=== PATIENT | female | born 1960 | race Caucasian/White ===

== ENCOUNTER 2019-06-28 00:35 | Inpatient (IN) | payer SELFPAY ==
[~2019-06-28] VITALS: Ht 165.1 cm; Wt 68.0 kg
[2019-06-28] VITALS (8 sets, daily range): BP systolic 93–117; BP diastolic 51–63
[2019-06-28] MEDS ORDERED: MORPHINE SULFATE INJ 4 MG/ML INJ 1ML IV STA (00:58)
[2019-06-28] MEDS ORDERED: ONDANSETRON HCL INJ 2MG/ML 2ML 2 MG/ML VIAL IV STA (00:58)
[2019-06-28] MEDS ORDERED: SODIUM CHLORIDE 0.9% 1000ML 1,000 ML IV ONE (01:00)
[2019-06-28] MEDS ORDERED: ONDANSETRON HCL INJ 2MG/ML 2ML 2 MG/ML VIAL ONE ×2 (01:11→17:41)
[2019-06-28] MEDS ORDERED: MORPHINE SULFATE INJ 4 MG/ML INJ 1ML ONE (01:12)
[2019-06-28] MEDS ORDERED: DIATRIZOATE MEGL/DIATRIZOA SOD 30 ML BTL PO ONE (01:30)
[2019-06-28 01:36] LABS: BASOPHILS % 0.2 % (0.0-1.0); EOSINOPHILS # (AUTO) 0.1 (0.0-0.4); EOSINOPHILS % 0.9 % (0.0-6.0); HEMATOCRIT 44.3 % (34.2-44.1); HEMOGLOBIN 14.9 g/dL (12.0-16.0); LYMPHOCYTES # (AUTO) 1.8 (1.0-3.2); LYMPHOCYTES % 11.2 % (18.0-39.1); MEAN CORPUSCULAR HGB CONC 33.6 g/dL (31-35); MEAN CORPUSCULAR VOLUME 86.4 fL (81-99); MONOCYTES # (AUTO) 1.3 (0.2-0.8); MONOCYTES % 7.9 % (4.4-11.3); NEUTROPHILS % 79.6 % (38.7-80.0); PLATELET COUNT 249 x10e3/uL (140-360); RED BLOOD COUNT 5.13 x10e6/uL (3.6-5.1); RED CELL DISTRIBUTION WIDTH 13.8 % (11.7-14.4)
[2019-06-28 01:37] LABS: BILIRUBIN,URINE NEGATIVE (NEGATIVE); CLARITY,URINE CLEAR (CLEAR); COLOR,URINE YELLOW (YELLOW); KETONES,URINE NEGATIVE (NEGATIVE); LEUKOCYTE ESTERASE ,URINE NEGATIVE (NEGATIVE); NITRITE,URINE NEGATIVE (NEGATIVE); PROTEIN,URINE DIPSTICK NEGATIVE (NEGATIVE); URINE UROBILINOGEN 0.2 mg/dL (0.2 - 1)
[2019-06-28 01:52] LABS: ALANINE AMINOTRANSFERASE 20 IU/L (0-55); ALBUMIN 4.6 g/dL (3.5-5.0); ALBUMIN/GLOBULIN RATIO 1.3 (0.8-2.0); ALKALINE PHOSPHATASE 75 IU/L (40-150); ANION GAP 17.1 mmol/L (8-16); BLOOD UREA NITROGEN 9 mg/dL (7-26); BUN/CREATININE RATIO 11 (6-25); CALCIUM 10.3 mg/dL (8.4-10.2); CARBON DIOXIDE 22 mmol/L (22-29); CHLORIDE 102 mmol/L (98-107); CREATININE, SERUM 0.82 mg/dL (0.57-1.11); EST GLOMERULAR FILTRATION RATE > 60 ML/MIN (60-); GLUCOSE 161 mg/dL (74-118); POTASSIUM 4.1 mmol/L (3.5-5.1); SODIUM 137 mmol/L (136-145)
[2019-06-28 01:57] LABS: EPITHELIAL CELLS,URINE RARE /LPF
[2019-06-28 02:05] LABS: AMYLASE 61 U/L (25-125); LIPASE 12 U/L (8-78)
[2019-06-28] MEDS ORDERED: SODIUM CHLORIDE 0.9% 50ML 50 ML ONE (02:28)
[2019-06-28] MEDS ORDERED: IOPAMIDOL 370 MG/ML 200 ML INFUS..BTL INJ ONE (02:29)
[2019-06-28] MEDS ORDERED: KETOROLAC TROMETHAMINE 30 MG/ML VIAL IV STA (02:50)
[2019-06-28] MEDS ORDERED: HYDROMORPHONE 1MG/1ML INJ IV STA (03:02)
--- NOTE | 2019-06-28 03:06 | Diagnostic Imaging Report ---
EXAMINATION: CT of the abdomen and pelvis with contrast. TECHNIQUE: Spiral CT images of the abdomen and pelvis were performed from the lung bases to the lesser trochanters after the intravenous administration of 100 cc Isovue-370. Coronal and sagittal reformatted images were obtained. COMPARISON: None. CLINICAL HISTORY:Abdominal pain, nausea, vomiting, fever, diarrhea DISCUSSION: ABDOMEN/PELVIS: LOWER THORAX:Atelectatic versus fibrotic changes of the lower lobes. HEPATOBILIARY: Simple cyst in segment IVb adjacent to the gallbladder (average internal attenuation less than 20 Hounsfield units). Subcentimeter lesions, hypoattenuating, within the right and left lobes, too small to further characterize but likely represent small cysts. No biliary dilatation. Gallbladder is unremarkable. SPLEEN: No splenomegaly. PANCREAS: No focal masses or ductal dilatation. ADRENALS: No adrenal nodules. KIDNEYS/URETERS: No hydronephrosis, stones, or solid mass lesions. PELVIC ORGANS/BLADDER: Urinary bladder is incompletely distended but otherwise unremarkable. Uterus is anteflexed and appears normal. No adnexal mass. PERITONEUM/RETROPERITONEUM: Small volume free pelvic fluid, average attenuation 10-15 Hounsfield units. No pneumoperitoneum. LYMPH NODES: No pelvic sidewall, retroperitoneal, or mesenteric lymphadenopathy. VESSELS: Abdominal aorta, major branch vessels, and iliac arterial systems are patent. Portal vein, splenic vein, and central superior mesenteric vein are patent. GI TRACT: The large bowel is notable for diverticula scattered along the sigmoid colon without definite wall thickening or adjacent inflammatory change. The appendix is dilated, measuring 1.3 cm at the tip, with a suspected appendicolith proximally seen on series 2 image 72. There is no small bowel dilatation to suggest obstruction. BONES AND SOFT TISSUE: No bony destructive lesions. No soft tissue abnormalities. IMPRESSION: Acute appendicitis with reactive free pelvic fluid. No keely perforation or drainable fluid collection. Findings discussed by telephone with Dr. Garcia of the emergency center at 3:00 AM 06/28/2019. Signed by: Dr. Arturo Leo M.D. on 06/28/2019 3:03 AM
[2019-06-28] MEDS ORDERED: SODIUM CHLORIDE 0.9% 1000ML 1,000 ML IV SCH (03:13)
[2019-06-28] MEDS ORDERED: PIPER-TAZ 3.375 GM 50 ML IV SCH ×2 (03:15→10:00)
[2019-06-28] MEDS ORDERED: ONDANSETRON HCL INJ 2MG/ML 2ML 2 MG/ML VIAL IV PRN ×2 (03:15→09:00)
[2019-06-28] MEDS ORDERED: HYDROMORPHONE 1MG/1ML INJ IV PRN (03:15)
--- OUTSIDE RECORDS SUMMARY | 2019-06-28 03:23 | XMS REPORT ---
Author Author [facility] Address Unknown Phone Unavailable Care Team Providers Care Displayer Merchandise Name Role Phone Gage GRANADO Unavailable Unavailable Problems This patient has no known problems. Allergies, Adverse Reactions, Alerts This patient has no known allergies or adverse reactions. Medications This patient has no known medications. Results Test Description Test Time Test Comments Text Results Atomic Results Result Comments CT ABDOMEN/PELVIS W 2019-06-28 02:52:00 [place] [id number] Patient Name: TAM ROA MR #: [id number] : 1960 Age/Sex: 59/F Req #: [id number] Adm Physician: Ordered by: SONIA GRANADO MD Report #: [id number] Location: ER Room/Bed: Procedure: CT/CT ABDOMEN/PELVIS W Exam Date: Exam Time: REPORT STATUS: Signed EXAMINATION: CT of the abdomen and pelvis with contrast. TE CHNIQUE: Spiral CT images of the abdomen and pelvis were performed from the lung bases to the lesser trochanters after the intravenous administration of 100 cc Isovue-370. Coronal and sagittal reformatted images were obtained. COMPARISON: None. CLINICAL HISTORY:Abdominal pain, nausea, vomiting, fever, diarrhea DISCUSSION: ABDOMEN/PELVIS: LOWER THORAX:Atelectatic versus fibrotic changes of the lower lobes. HEPATOBILIARY: Simple cyst in segment IVb adjacent to the gallbladder (average internal attenuation less than 20 Hounsfield units). Subcentimeter lesions, hypoattenuating, within the right and left lobes, too small to further characterize but likely represent small cysts. No biliary dilatation. Gallbladder is unremarkable. SPLEEN: No splenomegaly. PANCREAS: No focal masses or ductal dilatation. ADRENALS: No adrenal nodules. KIDNEYS/URETERS: No hydronephrosis, stones, or solid mass lesions. PELVIC ORGANS/BLADDER: Urinary bladder is incompletely distended but otherwise unremarkable. Uterus is anteflexed and appears normal. No adnexal mass. PERITONEUM/RETROPERITONEUM: Small volume free pelvic fluid, average attenuation 10-15 Hounsfield units. No pneumoperitoneum. LYMPH NODES: No pelvic sidewall, retroperitoneal, or mesenteric lymphadenopathy. VESSELS: Abdominal aorta, major branch vessels, and iliac arterial systems are patent. Portal vein, splenic vein, and central superior mesenteric vein are patent. GI TRACT: The large bowel is notable for diverticula scattered along the sigmoid colon without definite wall thickening or adjacent inflammatory change. The appendix is dilated, measuring 1.3 cm at the tip, with a suspected appendicolith proximally seen on series 2 image 72. There is no small bowel dilatation to suggest obstruction. BONES AND SOFT TISSUE: No bony destructive lesions. No soft tissue abnormalities. IMPRESSION: Acute appendicitis with reactive free pelvic fluid. No keely perforation or drainable fluid collection. Findings discussed by telephone with Dr. Granado of the emergency center at 3:00 AM 06/28/2019. Signed by: Dr. Jacquie Burris M.D. on 06/28/2019 3:03 AM Dictated By: JACQUIE BURRIS MD 2 Transcribed By: TRAM on 06/28/19302 COPY TO: SONIA GRANADO MD
[2019-06-28] MEDS ORDERED: BUPIVACAINE HCL 0.5% INJ 30 ML VIAL INJ ONE (08:02)
[2019-06-28] MEDS ORDERED: MORPHINE SULFATE INJ 4 MG/ML INJ 1ML IV PRN (09:00)
[2019-06-28] MEDS ORDERED: ACETAMINOPHEN 325 MG TAB PO PRN (09:00)
--- NOTE | 2019-06-28 09:11 | Pre Op History & Physical ---
CHIEF COMPLAINT: Abdominal pain. HISTORY OF PRESENT ILLNESS: The patient is a 59-year-old female, who presents with complaints of abdominal pain, says the pain started on Friday, which was 2 days ago. She has associated nausea, vomiting, as well as low-grade fever. Pain has persistently unchanged. She came to the emergency room for evaluation. CT scan of the abdomen and pelvis revealed findings suggestive of acute appendicitis. PAST MEDICAL HISTORY: Otherwise unremarkable. She has no chronic medical problems, only previous surgery, tubal ligation, as well as abdominoplasty. ALLERGIES: SHE HAS NO KNOWN ALLERGIES. MEDICATIONS: There were no current medications. FAMILY HISTORY: Noncontributory. SOCIAL HISTORY: The patient does not smoke cigarettes, does not drink alcohol. REVIEW OF SYSTEMS: As stated above, otherwise was negative. PHYSICAL EXAMINATION: GENERAL: The patient is awake and alert, in no distress. VITAL SIGNS: Normal. She is afebrile. HEENT: Unremarkable. Sclerae are nonicteric. NECK: Supple with no masses. LUNGS: Equal breath sounds are clear bilaterally. CARDIAC: Regular rate and rhythm with no murmur. ABDOMEN: Tender in the right lower quadrant with signs of peritonitis localized to right lower quadrant. There is no mass. There was no organomegaly. EXTREMITIES: Have no edema. Pulses were palpable. NEUROLOGIC: Intact. ASSESSMENT: A 59-year-old female with acute appendicitis. She is now admitted to the hospital. She was started on IV antibiotics. PLAN: Laparoscopic appendectomy. Procedure was explained to the patient including risks, benefits, and alternatives. She understands. She has had the opportunity to ask questions. She is aware of the possible need for open surgery. MD HERMANN Jones/PHILL /[id number]
[2019-06-28] MEDS: DEXTROSE 5%/0.45% SOD CHL 1,000 ML IV SCH ×2 (10:22→20:44)
[2019-06-28] MEDS: PIPER-TAZ 3.375 GM 50 ML IV SCH ×2 (10:29→17:29)
--- NOTE | 2019-06-28 12:52 | Operative Report ---
DATE OF PROCEDURE: 06/28/2019 SURGEON: Arturo Zee MD PREOPERATIVE DIAGNOSIS: Acute appendicitis. POSTOPERATIVE DIAGNOSIS: Acute appendicitis. PROCEDURES: Diagnostic laparoscopy, laparoscopic appendectomy. ADMISSIONS ADVISOR: None. ANESTHESIA: General endotracheal. INDICATIONS AND FINDINGS: The patient is a 59-year-old female, who presented with a 2-day history of abdominal pain, localized to right lower quadrant. Surgery based on acutely inflamed appendix, considerable fibrinous exudate, and some purulent fluid around the appendix. There was some inflammatory reaction on the small bowel. Liver and stomach appeared normal. TECHNIQUE: After adequate general endotracheal anesthesia with the patient in supine position, the abdomen was prepped and draped in sterile fashion with ChloraPrep solution. Skin just below the umbilicus was infiltrated with 0.5% Marcaine. Incision was made, abdominal wall was elevated and Veress needle was introduced. Pneumoperitoneum was then created. A 10 mm trocar and cannula were then passed through this wound. Laparoscopic camera was introduced. Initial laparoscopy revealed inflammatory process in right lower quadrant with some fibrinous exudate seen and inflammatory changes on the bowel. A 12 mm trocar and cannula were placed suprapubically and a 5 mm trocar and cannula were placed in the right upper quadrant. These were placed under direct vision. Cecum was elevated, acutely inflamed appendix identified. A window was created between the base of the appendix and mesoappendix. The base of the appendix was divided close to the cecum with Endo-ALYSHA stapler. The mesoappendix was also divided with the Endo-ALYSHA stapler freeing the appendix completely. Hemostasis at each staple line was seen to be adequate. The appendix was then placed into an Endopouch and brought out through the suprapubic cannula. Care was taken to not touch the abdominal wall. The area of the appendectomy was inspected for hemostasis, which was seen to be adequate. It was irrigated with saline, all fluid aspirated and inspected for hemostasis, which was seen to be adequate. Instruments and cannulas were then removed. Pneumoperitoneum was evacuated. Wounds were then closed. Fascia in the umbilical and suprapubic wounds closed with 0 Vicryl. Skin to all wounds closed with august. Sterile dressings applied to each wound. The patient tolerated the procedure well. Estimated blood loss was 10 mL. There were no complications. All counts were correct. The patient was taken to the recovery room in satisfactory condition. MD HERMANN Jones/PHILL /[id number]
[2019-06-28] MEDS: HYDROCODONE/APAP 5MG-325MG TAB PO PRN (17:38)
[2019-06-28] MEDS ORDERED: LIDOCAINE HCL 2% LOCAL INJ 5 ML SDV VIAL INJ ONE (17:41)
[2019-06-28] MEDS ORDERED: PROPOFOL IV EMULSION 10 MG/ML 20 ML VIAL ONE (17:41)
[2019-06-28] MEDS ORDERED: DEXAMETHASONE SOD PHOS INJ 4 MG/ML VIAL ONE (17:41)
[2019-06-28] MEDS ORDERED: SEVOFLURANE INHAL SOLN 250 ML PEN BTL ONE (17:41)
[2019-06-28] MEDS ORDERED: ROCURONIUM BROMIDE 10 MG/ML 5ML VIAL ONE (17:41)
[2019-06-28] MEDS ORDERED: MIDAZOLAM HCL 2 MG/2 ML VIAL ONE (18:19)
[2019-06-28] MEDS ORDERED: FENTANYL CITRATE/PF 100MCG/2 ML INJ ONE (18:19)
[2019-06-29] MEDS: PIPER-TAZ 3.375 GM 50 ML IV SCH ×3 (00:25→12:34)
[2019-06-29 00:47] VITALS: BP 105/55
[2019-06-29 05:52] LABS: BASOPHILS % 0.2 % (0.0-1.0); EOSINOPHILS # (AUTO) 0.1 (0.0-0.4); EOSINOPHILS % 0.3 % (0.0-6.0); HEMATOCRIT 34.7 % (34.2-44.1); HEMOGLOBIN 11.4 g/dL (12.0-16.0); LYMPHOCYTES # (AUTO) 1.5 (1.0-3.2); LYMPHOCYTES % 8.5 % (18.0-39.1); MEAN CORPUSCULAR HGB CONC 32.9 g/dL (31-35); MEAN CORPUSCULAR VOLUME 88.3 fL (81-99); MONOCYTES # (AUTO) 0.4 (0.2-0.8); MONOCYTES % 2.5 % (4.4-11.3); NEUTROPHILS # (AUTO) 15.3 (2.1-6.9); NEUTROPHILS % 87.8 % (38.7-80.0); PLATELET COUNT 168 x10e3/uL (140-360); RED BLOOD COUNT 3.93 x10e6/uL (3.6-5.1); RED CELL DISTRIBUTION WIDTH 14.4 % (11.7-14.4)
[2019-06-29] MEDS: HYDROCODONE/APAP 5MG-325MG TAB PO PRN (06:03)
[2019-06-29 06:18] LABS: ALANINE AMINOTRANSFERASE 12 IU/L (0-55); ALBUMIN 3.1 g/dL (3.5-5.0); ALKALINE PHOSPHATASE 44 IU/L (40-150); ANION GAP 9.8 mmol/L (8-16); BLOOD UREA NITROGEN 9 mg/dL (7-26); BUN/CREATININE RATIO 11 (6-25); CALCIUM 9.1 mg/dL (8.4-10.2); CARBON DIOXIDE 25 mmol/L (22-29); CHLORIDE 103 mmol/L (98-107); CREATININE, SERUM 0.82 mg/dL (0.57-1.11); EST GLOMERULAR FILTRATION RATE > 60 ML/MIN (60-); GLUCOSE 129 mg/dL (74-118); POTASSIUM 3.8 mmol/L (3.5-5.1); SODIUM 134 mmol/L (136-145)
[2019-06-29 08:10] VITALS: BP 102/52
[2019-06-29] MEDS: DEXTROSE 5%/0.45% SOD CHL 1,000 ML IV SCH (08:11)
[2019-06-29] MEDS ORDERED: ONDANSETRON HCL 4 MG ORAL DISINTEGRATING TAB PO PRN (09:00)
[2019-06-29 09:30] VITALS: BP 102/52
[2019-06-29 11:43] VITALS: BP 103/65
[2019-06-29] MEDS ORDERED: ULTRACET TABLE1 EACH PO (13:38)
[2019-06-29] MEDS ORDERED: AUGMENTIN 875-1 EACH PO (13:39)
== END 2019-06-29 14:15 | disposition home or self-care (01) | DRG 343 ==
LOC: ER 00:35 → ERHOLD 03:20 → MED/SURG3 04:00 → MED/SURG 09:59
PROVIDERS: ADMIT Surgery; ATTEND Surgery
PROC: 0DTJ4ZZ Resection of Appendix, Percutaneous Endoscopic Approach (ICD-10-PCS; principal; 2019-06-28 08:15)
DX: K35.30 Acute appendicitis with localized peritonitis, without perforation or gangrene (principal); Z82.49 Family history of ischemic heart disease and other diseases of the circulatory system
CPT/HCPCS: 36415; 74177; 80053; 81001; 82150; 83690; 85025; 88304; 99284; J1100; J1885; J2001; J2250; J2270; J2405; J2543; J3010; J7030; Q0162; Q9967

== ENCOUNTER 2024-08-06 20:55 | Emergency (ER) | payer SELFPAY ==
[~2024-08-06] VITALS: Ht 170.2 cm; Wt 68.0 kg
[~2024-08-06 20:55] MED LIST: AUGMENTIN 875-1 EACH PO; ULTRACET TABLE1 EACH PO
[2024-08-06 22:05] VITALS: TEMP 98.7
[2024-08-06] MEDS ORDERED: ONDANSETRON HCL 4 MG ORAL DISINTEGRATING TAB ONE (22:09)
[2024-08-06] MEDS: ONDANSETRON HCL 4 MG ORAL DISINTEGRATING TAB PO ONE (22:15)
[2024-08-06 23:14] LABS: BILIRUBIN,URINE SMALL (NEGATIVE); CLARITY,URINE SL CLOUDY (CLEAR); COLOR,URINE ORANGE (YELLOW); GLUCOSE, URINE 1+ (NEGATIVE); KETONES,URINE 1+ (NEGATIVE); LEUKOCYTE ESTERASE ,URINE LARGE (NEGATIVE); NITRITE,URINE POSITIVE (NEGATIVE); PH,URINE 5.5 (5 - 7); PROTEIN,URINE DIPSTICK >=300 (NEGATIVE); URINE UROBILINOGEN 1 mg/dL (0.2 - 1)
[2024-08-06 23:15] LABS: BACTERIA,URINE MANY /HPF; EPITHELIAL CELLS,URINE MODERATE /LPF; RBC,URINE >50 /HPF (0-5); WBC,URINE (MAN) >50 /HPF (0-5)
[2024-08-07] MEDS: KETOROLAC TROMETHAMINE 30 MG/ML VIAL IV STA (01:15)
[2024-08-07 01:57] LABS: BASOPHILS % 0.3 % (0.0-1.0); EOSINOPHILS % 0.1 % (0.0-6.0); HEMATOCRIT 43.6 % (34.2-44.1); HEMOGLOBIN 13.9 g/dL (12.0-16.0); LYMPHOCYTES % 13.7 % (18.0-39.1); MEAN CORPUSCULAR HEMOGLOBIN 30.1 pg (28-32); MEAN CORPUSCULAR HGB CONC 31.9 g/dL (31-35); MEAN CORPUSCULAR VOLUME 94.4 fL (81-99); MONOCYTES # (AUTO) 0.7 (0.2-0.8); MONOCYTES % 4.6 % (4.4-11.3); PLATELET COUNT 204 x10e3/uL (140-360); RED BLOOD COUNT 4.62 x10e6/uL (3.6-5.1); RED CELL DISTRIBUTION WIDTH 13.5 % (11.7-14.4); WHITE BLOOD COUNT 14.85 x10e3/uL (4.8-10.8)
[2024-08-07 02:08] LABS: INR 0.99; PROTHROMBIN TIME 13.6 seconds (11.9-14.5)
[2024-08-07 02:09] LABS: PARTIAL THROMBOPLASTIN TIME 32.8 seconds (23.8-35.5)
[2024-08-07 02:10] LABS: ANION GAP 16.9 mmol/L (8-16); CALCIUM 9.6 mg/dL (8.4-10.2); CREATININE, SERUM 0.95 mg/dL (0.57-1.11); POTASSIUM 3.9 mmol/L (3.5-5.1)
[2024-08-07] MEDS ORDERED: IOPAMIDOL 370 MG/ML 100 ML INFUS..BTL INJ ONE (02:50)
[2024-08-07 03:17] VITALS: PULSE 78; RESP 16
[2024-08-07] MEDS ORDERED: PYRIDIUM200 MG PO (04:07)
[2024-08-07] MEDS ORDERED: ONDANSETRON ODT4 MG SL (04:07)
[2024-08-07] MEDS ORDERED: CEFDINIR300 MG PO (04:07)
[2024-08-07 04:22] VITALS: BP 126/65; O2SAT 98
== END 2024-08-07 04:15 | disposition home or self-care (01) ==
LOC: ER 08-07 00:27
DX: N30.91 Cystitis, unspecified with hematuria (principal); R10.30 Lower abdominal pain, unspecified; D25.9 Leiomyoma of uterus, unspecified
CPT/HCPCS: 36415; 74178; 80048; 81001; 85025; 85610; 85730; 87086; 87186; 99284; J0696; J1885; Q0162 ×2; Q9967

== ENCOUNTER 2024-10-14 09:27 | Emergency (ER) | payer SELFPAY ==
[~2024-10-14] VITALS: Ht 170.2 cm; Wt 68.0 kg
[~2024-10-14 09:27] MED LIST changes: +CEFDINIR300 MG PO; +ONDANSETRON ODT4 MG SL; +PYRIDIUM200 MG PO
[2024-10-14 09:34] VITALS: TEMP 98.4
[2024-10-14 10:17] LABS: BASOPHILS % 0.3 % (0.0-1.0); EOSINOPHILS % 0.3 % (0.0-6.0); HEMATOCRIT 46.5 % (34.2-44.1); HEMOGLOBIN 14.8 g/dL (12.0-16.0); LYMPHOCYTES # (AUTO) 1.2 (1.0-3.2); LYMPHOCYTES % 19.3 % (18.0-39.1); MEAN CORPUSCULAR HEMOGLOBIN 30.6 pg (28-32); MEAN CORPUSCULAR HGB CONC 31.8 g/dL (31-35); MEAN CORPUSCULAR VOLUME 96.3 fL (81-99); MONOCYTES # (AUTO) 0.4 (0.2-0.8); MONOCYTES % 5.9 % (4.4-11.3); NEUTROPHILS # (AUTO) 4.7 (2.1-6.9); PLATELET COUNT 221 x10e3/uL (140-360); RED BLOOD COUNT 4.83 x10e6/uL (3.6-5.1); RED CELL DISTRIBUTION WIDTH 13.1 % (11.7-14.4); WHITE BLOOD COUNT 6.32 x10e3/uL (4.8-10.8)
[2024-10-14] MEDS ORDERED: IOPAMIDOL 370 MG/ML 100 ML INFUS..BTL INJ ONE ×2 (10:35→13:59)
[2024-10-14 10:48] LABS: ALBUMIN 4.8 g/dL (3.5-5.0); ALBUMIN/GLOBULIN RATIO 1.6 (0.8-2.0); ANION GAP 17.8 mmol/L (8-16); BILIRUBIN,TOTAL 0.5 mg/dL (0.2-1.2); CALCIUM 10.2 mg/dL (8.4-10.2); CREATININE, SERUM 0.86 mg/dL (0.57-1.11); POTASSIUM 3.8 mmol/L (3.5-5.1); TOTAL PROTEIN 7.8 g/dL (6.5-8.1)
[2024-10-14 10:54] LABS: TROPONIN I 0.011 ng/mL (0-0.300)
[2024-10-14] MEDS: DONNATAL/LIDOCAINE/MAALOX 30 ML SUSP PO ONE (11:02)
[2024-10-14] MEDS: ONDANSETRON HCL INJ 2MG/ML 2ML 2 MG/ML VIAL IV STA (11:02)
[2024-10-14] MEDS: FAMOTIDINE 20 MG/2 ML VIAL IV STA (11:02)
[2024-10-14] MEDS: SODIUM CHLORIDE FLUSH 10 ML SYR IV PRN (11:02)
[2024-10-14 12:14] VITALS: PULSE 71; RESP 16; O2SAT 100
== END 2024-10-14 12:25 | disposition home or self-care (01) ==
LOC: ER 09:34
DX: R11.2 Nausea with vomiting, unspecified (principal); K29.70 Gastritis, unspecified, without bleeding; R07.89 Other chest pain; R10.84 Generalized abdominal pain
CPT/HCPCS: 36415; 71046; 74177; 80053; 83690; 83880; 84484; 85025; 93005; 94760; 99283; J2405; Q9967